=== PATIENT | male | born 1950 | race Caucasian/White ===

== ENCOUNTER → 2017-12-31 | Outpatient (CLI) | payer MEDICARE | END | disposition home or self-care (01) | LOC: CVU 10:14 | PROVIDERS: ATTEND Nurse Practitioner Family | DX: I70.203 Unspecified atherosclerosis of native arteries of extremities, bilateral legs (principal); I70.8 Atherosclerosis of other arteries; I65.23 Occlusion and stenosis of bilateral carotid arteries; I77.1 Stricture of artery; I10 Essential (primary) hypertension; Z87.891 Personal history of nicotine dependence | CPT/HCPCS: 93880; 93922; 93925; 93978 ==

== ENCOUNTER → 2018-02-11 | Outpatient (CLI) | payer MEDICARE ==
[~2018-02-11] MED LIST: REGADENOSON 0.4 MG/5 ML SYRINGE ONE
== END ==
LOC: CFH 07:17
PROVIDERS: ATTEND Internal Medicine Cardiovascular Disease
DX: I25.9 Chronic ischemic heart disease, unspecified (principal); I10 Essential (primary) hypertension
CPT/HCPCS: 78452; 93017; A9502; J2785

== ENCOUNTER 2018-03-03 10:52 | Inpatient (IN) | payer MEDICARE ==
[~2018-03-03] VITALS: Ht 177.8 cm; Wt 89.0 kg
[~2018-03-03 10:52] MED LIST changes: +ACET-1600 PO; +ALPR-475 PO; +AMIT75TA PO; +AMLO5TAB2 PO; +ASPI-496 PO; +ATOR20TA PO; +BUPIVACAINE/PF 0.5% ONE; +BUPR150T73 PO; +CALC625T23 PO; +CHOL200024 PO; +DIPH25CA61 PO; +FISH1CAP PO; +GLUC1CAP48 PO; +IRBE300T16 PO; +LANS30CA60 PO; +MULT-658 PO; +RANI150T23 PO; -REGADENOSON 0.4 MG/5 ML SYRINGE ONE; +SUCR1TAB33 PO; +TAMS-11 PO; +TRAM50TA2 PO
[2018-03-03] MEDS ORDERED: LACTATED RINGERS 1,000 ML IV SCH (11:02)
[2018-03-03] MEDS ORDERED: PERCOCET PO (11:24)
[2018-03-03] MEDS ORDERED: GABAPENTIN 300 MG CAPSULE PO ONE (11:30)
[2018-03-03] MEDS ORDERED: ACETAMINOPHEN 500 MG TABLET PO ONE (11:30)
[2018-03-03] MEDS ORDERED: MIDAZOLAM 1 MG/ML, 2ML ONE (11:57)
[2018-03-03] MEDS ORDERED: FENTANYL PF 250 MCG/5ML ONE (11:58)
[2018-03-03] MEDS ORDERED: PROPOFOL 10 MG/ML, 20ML ONE (11:58)
[2018-03-03] MEDS ORDERED: ROCURONIUM 10MG/ML,5ML ONE (11:59)
[2018-03-03] MEDS ORDERED: GLYCOPYRROLATE 0.4 MG/2 ML, 2ML ONE ×2 (12:00→15:04)
[2018-03-03] MEDS ORDERED: NEOSTIGMINE 1 MG/ML, 10ML ONE ×2 (12:00→15:04)
[2018-03-03] MEDS ORDERED: BUPIVACAINE/PF 0.5% ONE (13:29)
[2018-03-03] MEDS ORDERED: ROPIvacaine/PF 0.5%, 30 ML ONE ×2 (13:42)
[2018-03-03] MEDS ORDERED: PROMETHAZINE 25 MG SUPP PR PRN (14:00)
[2018-03-03] MEDS ORDERED: LABETALOL 5MG/ML, 20ML IV PRN (14:00)
[2018-03-03] MEDS ORDERED: hydrALAzine 20 MG/ML, 1ML IV PRN (14:00)
[2018-03-03] MEDS ORDERED: MORPHINE SULFATE 4 MG/ML, 1ML IVPush PRN (14:00)
[2018-03-03] MEDS ORDERED: OXYcodone 5 MG/5 ML ORAL.SOL UDC PO PRN (14:00)
[2018-03-03] MEDS ORDERED: PROMETHAZINE 25 MG/ML, 1ML IV PRN (14:00)
[2018-03-03] MEDS ORDERED: PROMETHAZINE 12.5 MG SUPP PR PRN (14:00)
[2018-03-03] MEDS ORDERED: ONDANSETRON ODT 8 MG PO PRN (14:00)
[2018-03-03] MEDS ORDERED: MEPERIDINE/PF 25MG/0.5ML IVPush PRN (14:00)
[2018-03-03] MEDS ORDERED: HYDROmorphone 1 MG/ML, 1ML ONE (15:34)
[2018-03-03] MEDS ORDERED: FENTANYL PF 100 MCG/2ML ONE (15:34)
[2018-03-03] MEDS ORDERED: OXYcodone 5 MG/5 ML ORAL.SOL UDC ONE (15:35)
[2018-03-03] MEDS: HYDROmorphone 1 MG/ML, 1ML IV PRN ×2 (15:37→15:51)
[2018-03-03] MEDS: FENTANYL PF 100 MCG/2ML IV PRN ×2 (15:44→15:58)
[2018-03-03] MEDS ORDERED: PROMETHAZINE 25 MG/ML, 1ML ONE (16:26)
[2018-03-03 17:30] VITALS: BP 146/70
[2018-03-03] MEDS ORDERED: LORazepam 1MG TABLET PO PRN (18:00)
[2018-03-03] MEDS ORDERED: CALCIUM CARBONATE 500 MG TAB.CHEW PO PRN (18:00)
[2018-03-03] MEDS ORDERED: DEXAMETHASONE 4 MG/ML, 1ML IVPush PRN (18:00)
[2018-03-03] MEDS ORDERED: SCOPOLAMINE PATCH, 1.5MG PATCH.TD72 TD PRN (18:00)
[2018-03-03] MEDS ORDERED: HALOPERIDOL 5 MG/ML IVPush PRN (18:00)
[2018-03-03] MEDS: D5%-0.45NACL+KCL 20MEQ 1,000 ML IV SCH (18:00)
[2018-03-03] MEDS ORDERED: LORazepam 2 MG/ML, 1ML IVPush PRN (18:00)
[2018-03-03] MEDS ORDERED: ONDANSETRON 2MG/ML, 2ML IV PRN (18:00)
[2018-03-03] MEDS ORDERED: ONDANSETRON ODT 4 MG ONE (18:13)
[2018-03-03] MEDS: ACETAMINOPHEN 500 MG TABLET PO SCH (18:16)
[2018-03-03] MEDS: ONDANSETRON ODT 4 MG PO PRN (18:16)
[2018-03-03] MEDS: OXYcodone IR 5MG TABLET PO PRN (20:19)
[2018-03-03] MEDS: AMITRIPTYLINE 25 MG TABLET PO SCH (20:20)
[2018-03-03] MEDS: ATORVASTATIN 20 MG TABLET PO SCH (20:20)
[2018-03-03] MEDS: IRBESARTAN 300 MG TABLET PO SCH (20:21)
[2018-03-03] MEDS: IBUPROFEN 800 MG TABLET PO SCH (21:00)
[2018-03-03 21:18] VITALS: BP 161/79
[2018-03-04 00:16] VITALS: BP 128/73
[2018-03-04] MEDS: OXYcodone IR 5MG TABLET PO PRN ×6 (00:21→22:05)
[2018-03-04] MEDS: ACETAMINOPHEN 500 MG TABLET PO SCH ×4 (00:21→17:33)
[2018-03-04 05:11] LABS: BASOPHILS # (AUTO) 0.03 x10^3/uL (0-0.1); BASOPHILS % (AUTO) 0 % (0-1); EOSINOPHILS # (AUTO) 0.06 x10^3/uL (0-0.4); EOSINOPHILS % (AUTO) 1 % (1-7); LYMPHOCYTES # (AUTO) 1.82 x10^3/uL (1-3.4); LYMPHOCYTES % (AUTO) 17 % (22-44); MD NO; MEAN CORPUSCULAR HEMOGLOBIN 31.4 pg (27.5-34.5); MEAN CORPUSCULAR HGB CONC 34.2 g/dL (33.2-36.2); MEAN CORPUSCULAR VOLUME 91.8 fL (81-97); MEAN PLATELET VOLUME 9.3 fL (7.4-10.4); MONOCYTES # (AUTO) 0.66 x10^3/uL (0.2-0.8); MONOCYTES % (AUTO) 6 % (2-9); NEUTROPHILS # (AUTO) 8.07 x10^3/uL (1.8-6.8); NEUTROPHILS % (AUTO) 76 % (42-75); PLATELET COUNT 210 x10^3/uL (130-400); RED BLOOD COUNT 4.26 x10^6/uL (4.38-5.82); RED CELL DISTRIBUTION WIDTH 12.3 % (9.4-14.8)
[2018-03-04 05:16] VITALS: BP 120/59
[2018-03-04 05:19] LABS: CHLORIDE 103 mmol/L (98-107)
[2018-03-04 05:23] LABS: ANION GAP 6 mmol/L (5-15); CALCIUM 8.2 mg/dL (8.5-10.1); CREATININE 1.07 mg/dL (0.7-1.3)
[2018-03-04 08:09] VITALS: BP 125/74
[2018-03-04] MEDS: FAMOTIDINE 20 MG TABLET PO SCH (08:49)
[2018-03-04] MEDS: DIPHENHYDRAMINE 25 MG CAPSULE PO SCH (08:50)
[2018-03-04] MEDS: PANTOPROZOLE 40MG TABLET PO SCH (08:50)
[2018-03-04] MEDS: TAMSULOSIN 0.4 MG CAP.ER.24H PO SCH (08:50)
[2018-03-04] MEDS: BUPROPION SR 150 MG TABLET PO SCH (08:50)
[2018-03-04] MEDS: IBUPROFEN 800 MG TABLET PO SCH ×3 (08:51→22:03)
[2018-03-04] MEDS: D5%-0.45NACL+KCL 20MEQ 1,000 ML IV SCH ×2 (08:56→20:40)
[2018-03-04] MEDS: HEPARIN 5,000 UNITS/ML, 1ML SQ SCH ×2 (08:56→17:03)
[2018-03-04] MEDS ORDERED: AMLODIPINE 5 MG TABLET PO SCH (09:00)
[2018-03-04 13:44] VITALS: BP 137/76
[2018-03-04 19:45] VITALS: BP 156/75
[2018-03-04] MEDS: IRBESARTAN 300 MG TABLET PO SCH (22:00)
[2018-03-04] MEDS: AMITRIPTYLINE 25 MG TABLET PO SCH (22:02)
[2018-03-04] MEDS: ATORVASTATIN 20 MG TABLET PO SCH (22:03)
[2018-03-04] MEDS: AMLODIPINE 5 MG TABLET PO SCH (22:04)
[2018-03-05] MEDS: HEPARIN 5,000 UNITS/ML, 1ML SQ SCH ×3 (00:10→16:55)
[2018-03-05 01:48] VITALS: BP 111/64
[2018-03-05] MEDS: OXYcodone IR 5MG TABLET PO PRN ×3 (02:21→21:27)
[2018-03-05] MEDS: ACETAMINOPHEN 500 MG TABLET PO SCH ×4 (02:21→21:24)
[2018-03-05 03:54] VITALS: BP 125/74
[2018-03-05 05:23] LABS: BASOPHILS # (AUTO) 0.04 x10^3/uL (0-0.1); BASOPHILS % (AUTO) 1 % (0-1); EOSINOPHILS # (AUTO) 0.25 x10^3/uL (0-0.4); EOSINOPHILS % (AUTO) 3 % (1-7); LYMPHOCYTES % (AUTO) 27 % (22-44); MD NO; MEAN CORPUSCULAR HEMOGLOBIN 31.4 pg (27.5-34.5); MEAN CORPUSCULAR HGB CONC 34.1 g/dL (33.2-36.2); MEAN PLATELET VOLUME 8.8 fL (7.4-10.4); MONOCYTES # (AUTO) 0.53 x10^3/uL (0.2-0.8); MONOCYTES % (AUTO) 6 % (2-9); NEUTROPHILS # (AUTO) 5.65 x10^3/uL (1.8-6.8); NEUTROPHILS % (AUTO) 64 % (42-75); PLATELET COUNT 192 x10^3/uL (130-400); RED BLOOD COUNT 4.28 x10^6/uL (4.38-5.82); RED CELL DISTRIBUTION WIDTH 12.8 % (9.4-14.8)
[2018-03-05 05:34] LABS: ANION GAP 5 mmol/L (5-15); CALCIUM 8.8 mg/dL (8.5-10.1); CHLORIDE 106 mmol/L (98-107)
[2018-03-05 05:35] LABS: CREATININE 0.97 mg/dL (0.7-1.3)
[2018-03-05] MEDS: PANTOPROZOLE 40MG TABLET PO SCH (07:31)
[2018-03-05 08:11] VITALS: BP 123/75
[2018-03-05] MEDS: D5%-0.45NACL+KCL 20MEQ 1,000 ML IV SCH ×2 (10:00→23:20)
[2018-03-05] MEDS: IBUPROFEN 800 MG TABLET PO SCH ×3 (10:37→21:00)
[2018-03-05] MEDS: DIPHENHYDRAMINE 25 MG CAPSULE PO SCH (10:37)
[2018-03-05] MEDS: TAMSULOSIN 0.4 MG CAP.ER.24H PO SCH (10:37)
[2018-03-05] MEDS: BUPROPION SR 150 MG TABLET PO SCH (10:37)
[2018-03-05] MEDS: FAMOTIDINE 20 MG TABLET PO SCH (10:37)
[2018-03-05 14:00] VITALS: BP 125/80
[2018-03-05 19:41] VITALS: BP 123/66
[2018-03-05] MEDS: AMITRIPTYLINE 25 MG TABLET PO SCH (21:25)
[2018-03-05] MEDS: ATORVASTATIN 20 MG TABLET PO SCH (21:26)
[2018-03-05] MEDS: AMLODIPINE 5 MG TABLET PO SCH (21:26)
[2018-03-05] MEDS: IRBESARTAN 300 MG TABLET PO SCH (21:31)
[2018-03-06 01:59] VITALS: BP 118/69
[2018-03-06] MEDS: HEPARIN 5,000 UNITS/ML, 1ML SQ SCH ×3 (02:10→17:16)
[2018-03-06] MEDS: ACETAMINOPHEN 500 MG TABLET PO SCH ×4 (02:10→20:00)
[2018-03-06 06:08] LABS: BASOPHILS # (AUTO) 0.03 x10^3/uL (0-0.1); BASOPHILS % (AUTO) 0 % (0-1); EOSINOPHILS # (AUTO) 0.16 x10^3/uL (0-0.4); EOSINOPHILS % (AUTO) 2 % (1-7); LYMPHOCYTES # (AUTO) 1.16 x10^3/uL (1-3.4); LYMPHOCYTES % (AUTO) 11 % (22-44); MD NO; MEAN CORPUSCULAR HEMOGLOBIN 31.8 pg (27.5-34.5); MEAN CORPUSCULAR HGB CONC 34.4 g/dL (33.2-36.2); MEAN CORPUSCULAR VOLUME 92.5 fL (81-97); MEAN PLATELET VOLUME 10.4 fL (7.4-10.4); MONOCYTES # (AUTO) 0.48 x10^3/uL (0.2-0.8); MONOCYTES % (AUTO) 5 % (2-9); NEUTROPHILS # (AUTO) 8.75 x10^3/uL (1.8-6.8); NEUTROPHILS % (AUTO) 83 % (42-75); PLATELET COUNT 185 x10^3/uL (130-400); RED BLOOD COUNT 4.05 x10^6/uL (4.38-5.82); RED CELL DISTRIBUTION WIDTH 12.5 % (9.4-14.8)
[2018-03-06] MEDS: ONDANSETRON ODT 4 MG PO PRN ×3 (06:12→20:14)
[2018-03-06 06:13] LABS: ANION GAP 8 mmol/L (5-15); CALCIUM 9.1 mg/dL (8.5-10.1); CHLORIDE 102 mmol/L (98-107); CREATININE 1.01 mg/dL (0.7-1.3)
[2018-03-06] MEDS: PANTOPROZOLE 40MG TABLET PO SCH (08:17)
[2018-03-06] MEDS: TAMSULOSIN 0.4 MG CAP.ER.24H PO SCH (08:17)
[2018-03-06] MEDS: DIPHENHYDRAMINE 25 MG CAPSULE PO SCH (08:17)
[2018-03-06] MEDS: IBUPROFEN 800 MG TABLET PO SCH ×3 (08:17→21:00)
[2018-03-06] MEDS: BUPROPION SR 150 MG TABLET PO SCH (08:17)
[2018-03-06] MEDS: FAMOTIDINE 20 MG TABLET PO SCH (08:17)
[2018-03-06 09:07] VITALS: BP 99/63
[2018-03-06] MEDS: D5%-0.45NACL+KCL 20MEQ 1,000 ML IV SCH (09:55)
[2018-03-06 14:31] VITALS: BP 117/74
[2018-03-06] MEDS: DIPHENHYDRAMINE 50 MG/ML, 1ML IVPush PRN ×2 (14:51→20:14)
[2018-03-06] MEDS: HYDROmorphone 1 MG/ML, 1ML IVPush PRN (16:19)
[2018-03-06 20:38] VITALS: BP 143/84
[2018-03-06] MEDS: ATORVASTATIN 20 MG TABLET PO SCH (21:00)
[2018-03-06] MEDS: AMITRIPTYLINE 25 MG TABLET PO SCH (21:00)
[2018-03-06] MEDS: IRBESARTAN 300 MG TABLET PO SCH (21:00)
[2018-03-06] MEDS: AMLODIPINE 5 MG TABLET PO SCH (21:00)
[2018-03-07 01:41] VITALS: BP 136/80
[2018-03-07] MEDS: ONDANSETRON ODT 4 MG PO PRN ×4 (01:46→21:26)
[2018-03-07] MEDS: HEPARIN 5,000 UNITS/ML, 1ML SQ SCH ×4 (01:46→21:26)
[2018-03-07] MEDS: ACETAMINOPHEN 500 MG TABLET PO SCH ×4 (01:47→19:30)
[2018-03-07] MEDS: HYDROmorphone 1 MG/ML, 1ML IVPush PRN (01:47)
[2018-03-07] MEDS: D5%-0.45NACL+KCL 20MEQ 1,000 ML IV SCH ×3 (01:52→19:18)
[2018-03-07 06:49] VITALS: BP 110/73
[2018-03-07] MEDS: PANTOPROZOLE 40MG TABLET PO SCH (07:39)
[2018-03-07] MEDS: BUPROPION SR 150 MG TABLET PO SCH (09:38)
[2018-03-07] MEDS: IBUPROFEN 800 MG TABLET PO SCH ×3 (09:38→19:30)
[2018-03-07] MEDS: DIPHENHYDRAMINE 25 MG CAPSULE PO SCH (09:38)
[2018-03-07] MEDS: TAMSULOSIN 0.4 MG CAP.ER.24H PO SCH (09:39)
[2018-03-07] MEDS: FAMOTIDINE 20 MG TABLET PO SCH (09:39)
[2018-03-07 13:04] VITALS: BP 108/64
[2018-03-07 19:38] VITALS: BP 121/61
[2018-03-07] MEDS: ATORVASTATIN 20 MG TABLET PO SCH (21:25)
[2018-03-07] MEDS: AMLODIPINE 5 MG TABLET PO SCH (21:26)
[2018-03-07] MEDS: AMITRIPTYLINE 25 MG TABLET PO SCH (21:27)
[2018-03-07] MEDS: IRBESARTAN 300 MG TABLET PO SCH (21:27)
[2018-03-08 04:00] VITALS: BP 121/69
[2018-03-08] MEDS: ACETAMINOPHEN 500 MG TABLET PO SCH (05:05)
[2018-03-08] MEDS: HEPARIN 5,000 UNITS/ML, 1ML SQ SCH (05:06)
[2018-03-08 07:37] VITALS: BP 108/68
[2018-03-08] MEDS: TAMSULOSIN 0.4 MG CAP.ER.24H PO SCH (08:33)
[2018-03-08] MEDS: IBUPROFEN 800 MG TABLET PO SCH (08:33)
[2018-03-08] MEDS: PANTOPROZOLE 40MG TABLET PO SCH (08:33)
[2018-03-08] MEDS: ONDANSETRON ODT 4 MG PO PRN (08:33)
[2018-03-08] MEDS: FAMOTIDINE 20 MG TABLET PO SCH (08:33)
[2018-03-08] MEDS: BUPROPION SR 150 MG TABLET PO SCH (08:33)
[2018-03-08] MEDS: DIPHENHYDRAMINE 25 MG CAPSULE PO SCH (08:33)
[2018-03-08] MEDS ORDERED: OXYC-302 PO (09:54)
== END 2018-03-08 10:40 | disposition home or self-care (01) | DRG 330 ==
LOC: ORIP 10:52 → 4NOR 17:09
PROVIDERS: ADMIT Surgery; ATTEND Surgery
PROC: 0DTF4ZZ Resection of Right Large Intestine, Percutaneous Endoscopic Approach (ICD-10-PCS; principal; 2018-03-03 13:30)
DX: C18.0 Malignant neoplasm of cecum (principal); K56.7 Ileus, unspecified; K21.9 Gastro-esophageal reflux disease without esophagitis; I10 Essential (primary) hypertension; I73.9 Peripheral vascular disease, unspecified; G47.33 Obstructive sleep apnea (adult) (pediatric); N40.0 Benign prostatic hyperplasia without lower urinary tract symptoms
CPT/HCPCS: 36415; 80048; 85025; 86850; 86900; 88307; J1100; J1170; J1644; J2250; J2550; J2704; J2710; J2795; J3010; J3490; Q0162; J1200; J2060; J3480; J7120; Q0163

== ENCOUNTER 2018-03-09 12:47 | Emergency (ER) | payer MEDICARE ==
[~2018-03-09] VITALS: Ht 177.8 cm; Wt 87.0 kg
[~2018-03-09 12:47] MED LIST changes: -BUPIVACAINE/PF 0.5% ONE; +OXYC-302 PO; +PERCOCET PO
[2018-03-09] MEDS ORDERED: SODIUM CHLORIDE FLUSH 10ML SYR IVF ONE (13:30)
[2018-03-09 13:45] LABS: BASOPHILS # (AUTO) 0.01 x10^3/uL (0-0.1); BASOPHILS % (AUTO) 0 % (0-1); EOSINOPHILS # (AUTO) 0.02 x10^3/uL (0-0.4); EOSINOPHILS % (AUTO) 0 % (1-7); LYMPHOCYTES # (AUTO) 0.62 x10^3/uL (1-3.4); LYMPHOCYTES % (AUTO) 10 % (22-44); MD NO; MEAN CORPUSCULAR HEMOGLOBIN 31.6 pg (27.5-34.5); MEAN CORPUSCULAR HGB CONC 34.3 g/dL (33.2-36.2); MEAN CORPUSCULAR VOLUME 92.2 fL (81-97); MEAN PLATELET VOLUME 9.4 fL (7.4-10.4); MONOCYTES % (AUTO) 10 % (2-9); NEUTROPHILS # (AUTO) 4.99 x10^3/uL (1.8-6.8); NEUTROPHILS % (AUTO) 80 % (42-75); PLATELET COUNT 274 x10^3/uL (130-400); RED BLOOD COUNT 4.06 x10^6/uL (4.38-5.82); RED CELL DISTRIBUTION WIDTH 12.8 % (9.4-14.8)
[2018-03-09 13:52] LABS: ALBUMIN 3.5 g/dL (3.4-5.0); ANION GAP 12 mmol/L (5-15); CALCIUM 8.4 mg/dL (8.5-10.1); CHLORIDE 100 mmol/L (98-107)
[2018-03-09 13:56] LABS: ALANINE AMINOTRANSFERASE 83 U/L (12-78); ALKALINE PHOSPHATASE 80 U/L (45-117); BILIRUBIN,TOTAL 0.7 mg/dL (0.2-1.0); CREATININE 1.22 mg/dL (0.7-1.3); TOTAL PROTEIN 7.2 g/dL (6.4-8.2)
[2018-03-09] MEDS ORDERED: SODIUM CHLORIDE 0.9% 1,000ML IVBOLUS ONE (16:00)
[2018-03-09] MEDS ORDERED: OMNIPAQUE 350 MG/ML, 100ML BOTTLE ONE (16:03)
[2018-03-09 16:49] LABS: MICROSCOPIC INDICATED
[2018-03-09 17:17] LABS: CULTURE INDICATED? NO
[2018-03-09 17:47] VITALS: BP 133/66
== END 2018-03-09 17:54 | disposition home or self-care (01) ==
LOC: ED 17:45
DX: F41.1 Generalized anxiety disorder (principal); E86.0 Dehydration; K56.0 Paralytic ileus; I10 Essential (primary) hypertension; Z87.891 Personal history of nicotine dependence; Z90.49 Acquired absence of other specified parts of digestive tract
CPT/HCPCS: 36415; 74177; 80053; 81001; 85025; 93005; 96360; 99285; J7030; Q9967

== ENCOUNTER 2018-03-14 09:45 | Inpatient (IN) | payer MEDICARE ==
[~2018-03-14] VITALS: Ht 177.8 cm; Wt 83.5 kg
[2018-03-14] MEDS ORDERED: SODIUM CHLORIDE FLUSH 10ML SYR IVF ONE (10:30)
[2018-03-14] MEDS ORDERED: ONDANSETRON ODT 4 MG PO ONE (10:30)
[2018-03-14] MEDS ORDERED: MORPHINE SULFATE 4 MG/ML, 1ML IVPush PRN ×2 (10:30→14:30)
[2018-03-14 10:39] LABS: BASOPHILS # (AUTO) 0.03 x10^3/uL (0-0.1); BASOPHILS % (AUTO) 0 % (0-1); EOSINOPHILS # (AUTO) 0.03 x10^3/uL (0-0.4); EOSINOPHILS % (AUTO) 0 % (1-7); LYMPHOCYTES # (AUTO) 1.17 x10^3/uL (1-3.4); LYMPHOCYTES % (AUTO) 13 % (22-44); MD NO; MEAN CORPUSCULAR HEMOGLOBIN 31.8 pg (27.5-34.5); MEAN CORPUSCULAR HGB CONC 34.8 g/dL (33.2-36.2); MEAN CORPUSCULAR VOLUME 91.6 fL (81-97); MEAN PLATELET VOLUME 8.8 fL (7.4-10.4); MONOCYTES # (AUTO) 0.86 x10^3/uL (0.2-0.8); MONOCYTES % (AUTO) 10 % (2-9); NEUTROPHILS # (AUTO) 6.84 x10^3/uL (1.8-6.8); NEUTROPHILS % (AUTO) 77 % (42-75); PLATELET COUNT 309 x10^3/uL (130-400); RED BLOOD COUNT 3.91 x10^6/uL (4.38-5.82)
[2018-03-14 10:41] LABS: ALANINE AMINOTRANSFERASE 58 U/L (12-78); ALBUMIN 3.4 g/dL (3.4-5.0); ANION GAP 9 mmol/L (5-15); CALCIUM 8.8 mg/dL (8.5-10.1); CHLORIDE 104 mmol/L (98-107); CREATININE 0.75 mg/dL (0.7-1.3)
[2018-03-14 10:43] LABS: ALKALINE PHOSPHATASE 80 U/L (45-117); BILIRUBIN,TOTAL 0.4 mg/dL (0.2-1.0); TOTAL PROTEIN 7.2 g/dL (6.4-8.2)
[2018-03-14] MEDS ORDERED: BENZOCAINE 20% SPRAY 0.5ML ONE ×2 (11:33→11:40)
[2018-03-14] MEDS ORDERED: SODIUM CHLORIDE 0.9% 1,000 ML IV ONE (11:44)
[2018-03-14] MEDS ORDERED: SODIUM CHLORIDE FLUSH 10ML SYR IVF PRN (12:00)
[2018-03-14] MEDS ORDERED: SODIUM CHLORIDE 0.9% 1,000 ML IV SCH (12:11)
[2018-03-14] MEDS ORDERED: MORPHINE SULFATE 4 MG/ML, 1ML ONE (12:18)
[2018-03-14] MEDS: MORPHINE SULFATE 4 MG/ML, 1ML IVPush PRN ×2 (12:20→21:11)
[2018-03-14] MEDS ORDERED: PROMETHAZINE 25 MG/ML, 1ML IM PRN (12:30)
[2018-03-14] MEDS ORDERED: ONDANSETRON 2MG/ML, 2ML IVPush PRN (12:30)
[2018-03-14] MEDS ORDERED: POTASSIUM CHLORIDE 40 MEQ in SODIUM CHLORIDE 0.9% 1,000 ML IV SCH (13:00)
[2018-03-14 13:40] VITALS: BP 135/72
[2018-03-14] MEDS ORDERED: KETOROLAC 30 MG/1 ML IV PRN (14:30)
[2018-03-14] MEDS: LORazepam 2 MG/ML, 1ML IVPush PRN ×2 (14:36→21:11)
[2018-03-14] MEDS: POTASSIUM CHLORIDE 40 MEQ in SODIUM CHLORIDE 0.9% 1,000 ML IV SCH (15:35)
[2018-03-14] MEDS: KETOROLAC 30 MG/1 ML IV PRN (15:50)
[2018-03-14] MEDS: BENZOCAINE 20% SPRAY 0.5ML TP PRN (19:16)
[2018-03-14 20:10] VITALS: BP 130/84
[2018-03-15 02:21] VITALS: BP 140/83
[2018-03-15] MEDS: POTASSIUM CHLORIDE 40 MEQ in SODIUM CHLORIDE 0.9% 1,000 ML IV SCH ×2 (03:32→16:30)
[2018-03-15] MEDS: KETOROLAC 30 MG/1 ML IV PRN (03:39)
[2018-03-15 05:24] LABS: BASOPHILS # (AUTO) 0.02 x10^3/uL (0-0.1); BASOPHILS % (AUTO) 0 % (0-1); EOSINOPHILS # (AUTO) 0.04 x10^3/uL (0-0.4); EOSINOPHILS % (AUTO) 1 % (1-7); LYMPHOCYTES # (AUTO) 1.42 x10^3/uL (1-3.4); LYMPHOCYTES % (AUTO) 15 % (22-44); MD NO; MEAN CORPUSCULAR HEMOGLOBIN 31.4 pg (27.5-34.5); MEAN CORPUSCULAR HGB CONC 33.7 g/dL (33.2-36.2); MEAN CORPUSCULAR VOLUME 93.2 fL (81-97); MEAN PLATELET VOLUME 9.1 fL (7.4-10.4); MONOCYTES # (AUTO) 0.84 x10^3/uL (0.2-0.8); MONOCYTES % (AUTO) 9 % (2-9); NEUTROPHILS # (AUTO) 6.97 x10^3/uL (1.8-6.8); NEUTROPHILS % (AUTO) 75 % (42-75); PLATELET COUNT 262 x10^3/uL (130-400); RED CELL DISTRIBUTION WIDTH 12.9 % (9.4-14.8)
[2018-03-15 05:25] LABS: ALBUMIN 2.9 g/dL (3.4-5.0); ANION GAP 10 mmol/L (5-15); CHLORIDE 106 mmol/L (98-107)
[2018-03-15 05:30] LABS: ALANINE AMINOTRANSFERASE 48 U/L (12-78); ALKALINE PHOSPHATASE 69 U/L (45-117); BILIRUBIN,TOTAL 0.5 mg/dL (0.2-1.0); CREATININE 0.65 mg/dL (0.7-1.3); TOTAL PROTEIN 6.2 g/dL (6.4-8.2)
[2018-03-15 06:58] VITALS: BP 145/80
[2018-03-15 12:18] VITALS: BP 127/78
[2018-03-15] MEDS: BENZOCAINE 20% SPRAY 0.5ML TP PRN (18:17)
[2018-03-15 18:53] VITALS: BP 130/87
[2018-03-15] MEDS: LORazepam 2 MG/ML, 1ML IVPush PRN (20:54)
[2018-03-16 03:27] VITALS: BP 151/74
[2018-03-16] MEDS: POTASSIUM CHLORIDE 40 MEQ in SODIUM CHLORIDE 0.9% 1,000 ML IV SCH (06:40)
[2018-03-16 09:01] LABS: BASOPHILS # (AUTO) 0.02 x10^3/uL (0-0.1); BASOPHILS % (AUTO) 0 % (0-1); EOSINOPHILS # (AUTO) 0.08 x10^3/uL (0-0.4); EOSINOPHILS % (AUTO) 1 % (1-7); LYMPHOCYTES # (AUTO) 1.54 x10^3/uL (1-3.4); LYMPHOCYTES % (AUTO) 16 % (22-44); MD NO; MEAN CORPUSCULAR HEMOGLOBIN 31.7 pg (27.5-34.5); MEAN CORPUSCULAR HGB CONC 34.6 g/dL (33.2-36.2); MEAN CORPUSCULAR VOLUME 91.7 fL (81-97); MEAN PLATELET VOLUME 8.3 fL (7.4-10.4); MONOCYTES # (AUTO) 0.69 x10^3/uL (0.2-0.8); MONOCYTES % (AUTO) 7 % (2-9); NEUTROPHILS # (AUTO) 7.08 x10^3/uL (1.8-6.8); NEUTROPHILS % (AUTO) 75 % (42-75); PLATELET COUNT 310 x10^3/uL (130-400); RED BLOOD COUNT 3.67 x10^6/uL (4.38-5.82); RED CELL DISTRIBUTION WIDTH 13.5 % (9.4-14.8)
[2018-03-16 09:13] LABS: ALANINE AMINOTRANSFERASE 46 U/L (12-78); ALBUMIN 3.2 g/dL (3.4-5.0); ANION GAP 16 mmol/L (5-15); CALCIUM 8.7 mg/dL (8.5-10.1); CHLORIDE 109 mmol/L (98-107); CREATININE 0.68 mg/dL (0.7-1.3)
[2018-03-16 09:14] VITALS: BP 131/76
[2018-03-16 09:15] LABS: ALKALINE PHOSPHATASE 74 U/L (45-117); BILIRUBIN,TOTAL 0.4 mg/dL (0.2-1.0); TOTAL PROTEIN 6.8 g/dL (6.4-8.2)
[2018-03-16] MEDS ORDERED: [UNRECOGNIZED DRUG - REMARK] MC SCH (09:30)
[2018-03-16] MEDS ORDERED: MAGNESIUM SULFATE PMX 2GM/50ML 50 ML IV ONE (12:30)
[2018-03-16 13:54] VITALS: BP 155/87
[2018-03-16] MEDS ORDERED: OMNIPAQUE 350 MG/ML, 150 ML BOTTLE ONE (18:22)
[2018-03-16 19:05] VITALS: BP 150/81
[2018-03-16] MEDS: LORazepam 2 MG/ML, 1ML IVPush PRN (21:23)
[2018-03-16] MEDS: MORPHINE SULFATE 4 MG/ML, 1ML IVPush PRN (21:23)
[2018-03-17 03:02] VITALS: BP 146/78
[2018-03-17 07:57] VITALS: BP 145/71
[2018-03-17 09:28] LABS: BASOPHILS # (AUTO) 0.03 x10^3/uL (0-0.1); BASOPHILS % (AUTO) 0 % (0-1); EOSINOPHILS # (AUTO) 0.16 x10^3/uL (0-0.4); EOSINOPHILS % (AUTO) 2 % (1-7); LYMPHOCYTES # (AUTO) 1.62 x10^3/uL (1-3.4); LYMPHOCYTES % (AUTO) 18 % (22-44); MD NO; MEAN CORPUSCULAR HEMOGLOBIN 30.8 pg (27.5-34.5); MEAN CORPUSCULAR HGB CONC 33.3 g/dL (33.2-36.2); MEAN CORPUSCULAR VOLUME 92.5 fL (81-97); MEAN PLATELET VOLUME 8.3 fL (7.4-10.4); MONOCYTES % (AUTO) 7 % (2-9); NEUTROPHILS % (AUTO) 74 % (42-75); PLATELET COUNT 330 x10^3/uL (130-400); RED BLOOD COUNT 3.67 x10^6/uL (4.38-5.82); RED CELL DISTRIBUTION WIDTH 13.5 % (9.4-14.8)
[2018-03-17 09:38] LABS: ALBUMIN 3.2 g/dL (3.4-5.0); ANION GAP 13 mmol/L (5-15); CALCIUM 8.3 mg/dL (8.5-10.1); CHLORIDE 113 mmol/L (98-107)
[2018-03-17 09:42] LABS: ALANINE AMINOTRANSFERASE 40 U/L (12-78); ALKALINE PHOSPHATASE 76 U/L (45-117); BILIRUBIN,TOTAL 0.5 mg/dL (0.2-1.0); CREATININE 0.75 mg/dL (0.7-1.3); TOTAL PROTEIN 6.8 g/dL (6.4-8.2)
[2018-03-17] MEDS: POTASSIUM CHLORIDE 40 MEQ in SODIUM CHLORIDE 0.9% 1,000 ML IV SCH ×3 (12:18→21:19)
[2018-03-17 12:48] VITALS: BP 128/90
[2018-03-17 19:38] VITALS: BP_SYST 162; BP_SYST 166; BP_DIAS 75; BP_DIAS 77
[2018-03-17] MEDS: KETOROLAC 30 MG/1 ML IV PRN (22:37)
[2018-03-17] MEDS: LORazepam 2 MG/ML, 1ML IVPush PRN (22:37)
[2018-03-18 02:59] VITALS: BP 134/67
[2018-03-18 06:59] VITALS: BP 159/88
[2018-03-18 09:59] LABS: ALANINE AMINOTRANSFERASE 38 U/L (12-78); ALBUMIN 3.2 g/dL (3.4-5.0); ANION GAP 10 mmol/L (5-15); BASOPHILS # (AUTO) 0.03 x10^3/uL (0-0.1); BASOPHILS % (AUTO) 0 % (0-1); CALCIUM 8.8 mg/dL (8.5-10.1); CHLORIDE 107 mmol/L (98-107); EOSINOPHILS # (AUTO) 0.22 x10^3/uL (0-0.4); EOSINOPHILS % (AUTO) 2 % (1-7); LYMPHOCYTES # (AUTO) 1.35 x10^3/uL (1-3.4); LYMPHOCYTES % (AUTO) 15 % (22-44); MD NO; MEAN CORPUSCULAR HEMOGLOBIN 31.6 pg (27.5-34.5); MEAN PLATELET VOLUME 8.1 fL (7.4-10.4); MONOCYTES # (AUTO) 0.43 x10^3/uL (0.2-0.8); MONOCYTES % (AUTO) 5 % (2-9); NEUTROPHILS # (AUTO) 6.95 x10^3/uL (1.8-6.8); NEUTROPHILS % (AUTO) 77 % (42-75); PLATELET COUNT 355 x10^3/uL (130-400); RED BLOOD COUNT 3.85 x10^6/uL (4.38-5.82); RED CELL DISTRIBUTION WIDTH 13.3 % (9.4-14.8)
[2018-03-18 10:01] LABS: ALKALINE PHOSPHATASE 78 U/L (45-117); BILIRUBIN,TOTAL 0.5 mg/dL (0.2-1.0)
[2018-03-18 12:53] VITALS: BP 138/83
== END 2018-03-18 14:29 | disposition home or self-care (01) | DRG 389 ==
LOC: ED 10:50 → EDIP 11:44 → 4NOR 12:49 → DCLOUNGE 03-18 14:18
PROVIDERS: ADMIT Hospitalist; ATTEND Hospitalist
DX: K56.609 Unspecified intestinal obstruction, unspecified as to partial versus complete obstruction (principal); E87.1 Hypo-osmolality and hyponatremia; D64.9 Anemia, unspecified; E78.5 Hyperlipidemia, unspecified; E87.6 Hypokalemia; F41.9 Anxiety disorder, unspecified; G47.33 Obstructive sleep apnea (adult) (pediatric); G89.18 Other acute postprocedural pain; I10 Essential (primary) hypertension; I73.9 Peripheral vascular disease, unspecified; K21.9 Gastro-esophageal reflux disease without esophagitis; N40.0 Benign prostatic hyperplasia without lower urinary tract symptoms; Z82.3 Family history of stroke; Z87.891 Personal history of nicotine dependence; Z90.49 Acquired absence of other specified parts of digestive tract; Z99.81 Dependence on supplemental oxygen
CPT/HCPCS: 36415; 74018; 74022; 74250; 80053; 83605; 83735; 84100; 85025; 99285; J1885; J3480; Q9967; J2060; J3475; J7030

== ENCOUNTER → 2019-01-25 | Outpatient (CLI) | payer MEDICARE ==
[~2019-01-25] MED LIST changes: +AMLO-150 PO; -AMLO5TAB2 PO
== END | disposition home or self-care (01) ==
LOC: CVU 12:14
PROVIDERS: ATTEND Internal Medicine Cardiovascular Disease
DX: I74.5 Embolism and thrombosis of iliac artery (principal); I74.3 Embolism and thrombosis of arteries of the lower extremities; I70.292 Other atherosclerosis of native arteries of extremities, left leg; I77.1 Stricture of artery; I10 Essential (primary) hypertension; E78.5 Hyperlipidemia, unspecified; F17.200 Nicotine dependence, unspecified, uncomplicated; Z86.718 Personal history of other venous thrombosis and embolism
CPT/HCPCS: 93922; 93925; 93978

== ENCOUNTER → 2019-04-04 | Outpatient (CLI) | payer MEDICARE ==
[~2019-04-04] MED LIST changes: +REGADENOSON 0.4 MG/5 ML SYRINGE ONE
== END | disposition home or self-care (01) ==
LOC: CFH 07:58
PROVIDERS: ATTEND Internal Medicine Cardiovascular Disease
DX: I21.19 ST elevation (STEMI) myocardial infarction involving other coronary artery of inferior wall (principal); I10 Essential (primary) hypertension; I70.202 Unspecified atherosclerosis of native arteries of extremities, left leg
CPT/HCPCS: 78452; 93017; A9502; J2785

== ENCOUNTER 2019-08-29 10:42 | Outpatient (CLI) | payer MEDICARE ==
[~2019-08-29 10:42] MED LIST changes: -ALPR-475 PO; +ALPR0.5T7 PO; +RANI-467 PO; -RANI150T23 PO; -REGADENOSON 0.4 MG/5 ML SYRINGE ONE
== END 2019-08-29 23:59 | disposition home or self-care (01) ==
LOC: RAD 10:42
PROVIDERS: ATTEND Nurse Practitioner
DX: I65.23 Occlusion and stenosis of bilateral carotid arteries (principal); Z87.891 Personal history of nicotine dependence
CPT/HCPCS: 93880

== ENCOUNTER 2019-10-31 09:00 | Outpatient (CLI) | payer MEDICARE ==
[~2019-10-31 09:00] MED LIST changes: -IRBE300T16 PO; +IRBE300T8 PO
== END 2019-10-31 23:59 | disposition home or self-care (01) ==
LOC: CVU 09:00
PROVIDERS: ATTEND Nurse Practitioner
DX: I70.8 Atherosclerosis of other arteries (principal)
CPT/HCPCS: 93931

== ENCOUNTER 2019-12-20 12:14 | Outpatient (CLI) | payer MEDICARE | END 2019-12-20 23:59 | disposition home or self-care (01) | LOC: CVU 12:14 | PROVIDERS: ATTEND Internal Medicine Cardiovascular Disease | DX: I08.0 Rheumatic disorders of both mitral and aortic valves (principal); I70.201 Unspecified atherosclerosis of native arteries of extremities, right leg; Z87.891 Personal history of nicotine dependence | CPT/HCPCS: 93306; 93356; 93922; 93925 ==

== ENCOUNTER → 2020-04-23 | Outpatient (CLI) | payer MEDICARE ==
[~2020-04-23] MED LIST changes: +REGADENOSON 0.4 MG/5 ML SYRINGE ONE
== END | disposition home or self-care (01) ==
LOC: CFH 08:24
PROVIDERS: ATTEND Internal Medicine Cardiovascular Disease
DX: I10 Essential (primary) hypertension (principal)
CPT/HCPCS: 78452; 93017; A9502; J2785

== ENCOUNTER → 2020-05-17 | Outpatient (CLI) | payer MEDICARE ==
[~2020-05-17] MED LIST changes: -REGADENOSON 0.4 MG/5 ML SYRINGE ONE
== END | disposition home or self-care (01) ==
LOC: CFH 09:41
PROVIDERS: ATTEND Nurse Practitioner
DX: R22.0 Localized swelling, mass and lump, head (principal); D49.89 Neoplasm of unspecified behavior of other specified sites
CPT/HCPCS: 70450

== ENCOUNTER 2020-07-27 07:41 | Day surgery (SDC) | payer MEDICARE ==
[~2020-07-27 07:41] MED LIST changes: +FERR325T18 PO; +POLY17PO5 PO; +SENN-220 PO
[2020-07-27 08:49] VITALS: BP 123/75
[2020-07-27] MEDS ORDERED: FENTANYL PF 100 MCG/2ML ONE (11:06)
[2020-07-27] MEDS ORDERED: NALOXONE 1 MG/ML, 2ML ONE (11:06)
[2020-07-27] MEDS ORDERED: MIDAZOLAM 1 MG/ML, 5ML ONE ×2 (11:06)
[2020-07-27] MEDS ORDERED: FLUMAZENIL 0.1 MG/1 ML, 5ML ONE (11:06)
== END 2020-07-27 12:45 | disposition home or self-care (01) ==
LOC: OUT 07:41
PROVIDERS: ATTEND Internal Medicine Hematology & Oncology
DX: R22.2 Localized swelling, mass and lump, trunk (principal); C45.0 Mesothelioma of pleura; J43.9 Emphysema, unspecified; I10 Essential (primary) hypertension; G47.30 Sleep apnea, unspecified; K21.9 Gastro-esophageal reflux disease without esophagitis; Z79.891 Long term (current) use of opiate analgesic; Z79.899 Other long term (current) drug therapy; Z87.891 Personal history of nicotine dependence; Z99.81 Dependence on supplemental oxygen
CPT/HCPCS: 20206; 77012; 88305; 88341; 88342; 99156; 99157; J2250; J3010; J2310

== ENCOUNTER → 2020-08-01 | Outpatient (CLI) | payer MEDICARE | END | disposition home or self-care (01) | LOC: ROC 08:00 | PROVIDERS: ATTEND Radiology Radiation Oncology | DX: C45.7 Mesothelioma of other sites (principal); K21.9 Gastro-esophageal reflux disease without esophagitis; J43.9 Emphysema, unspecified; I10 Essential (primary) hypertension; E78.5 Hyperlipidemia, unspecified; F32.9 Major depressive disorder, single episode, unspecified; G89.29 Other chronic pain; Z90.49 Acquired absence of other specified parts of digestive tract; Z79.891 Long term (current) use of opiate analgesic; Z79.01 Long term (current) use of anticoagulants; Z79.82 Long term (current) use of aspirin; Z79.899 Other long term (current) drug therapy; Z87.891 Personal history of nicotine dependence; Z99.81 Dependence on supplemental oxygen | CPT/HCPCS: 99214; G0463 ==

== ENCOUNTER 2020-08-10 07:01 | Day surgery (SDC) | payer MEDICARE ==
[~2020-08-10] VITALS: Ht 177.8 cm; Wt 82.0 kg
[2020-08-10] MEDS ORDERED: CEFAZOLIN PMX 1GM/50ML 50 ML IV STA (07:37)
[2020-08-10] MEDS ORDERED: SODIUM CHLORIDE 0.9% 1,000 ML IV SCH (08:00)
[2020-08-10] MEDS ORDERED: FLUMAZENIL 0.1 MG/1 ML, 5ML ONE (08:43)
[2020-08-10] MEDS ORDERED: FENTANYL PF 100 MCG/2ML ONE (08:43)
[2020-08-10] MEDS ORDERED: MIDAZOLAM 1 MG/ML, 5ML ONE (08:43)
[2020-08-10] MEDS ORDERED: NALOXONE 1 MG/ML, 2ML ONE (08:43)
[2020-08-10 08:47] VITALS: BP 160/86
[2020-08-10] MEDS ORDERED: LIDOCAINE 1%, 20ML ONE (09:30)
[2020-08-10] MEDS ORDERED: LIDOCAINE 1%, 10ML ONE (09:36)
== END 2020-08-10 11:15 | disposition home or self-care (01) ==
LOC: OUT 07:01
PROVIDERS: ATTEND Internal Medicine Hematology & Oncology
DX: C45.9 Mesothelioma, unspecified (principal); I10 Essential (primary) hypertension; K21.9 Gastro-esophageal reflux disease without esophagitis; G47.30 Sleep apnea, unspecified; I73.9 Peripheral vascular disease, unspecified; Z79.891 Long term (current) use of opiate analgesic; Z79.899 Other long term (current) drug therapy; Z87.891 Personal history of nicotine dependence
CPT/HCPCS: 36561; 76937; 77001; 99156; 99157; C1788; J0690; J1642; J2250; J3010; J7030; J2310

== ENCOUNTER → 2020-08-29 | Outpatient (CLI) | payer MEDICARE | END | disposition home or self-care (01) | LOC: ROC 08:24 | PROVIDERS: ATTEND Radiology Radiation Oncology | DX: C45.7 Mesothelioma of other sites (principal); I10 Essential (primary) hypertension; K21.9 Gastro-esophageal reflux disease without esophagitis; J43.9 Emphysema, unspecified; E78.5 Hyperlipidemia, unspecified; F32.9 Major depressive disorder, single episode, unspecified; G89.29 Other chronic pain; Z79.899 Other long term (current) drug therapy; Z87.891 Personal history of nicotine dependence; Z90.49 Acquired absence of other specified parts of digestive tract; Z79.891 Long term (current) use of opiate analgesic; Z99.81 Dependence on supplemental oxygen; Z79.82 Long term (current) use of aspirin | CPT/HCPCS: 99212; G0463 ==

== ENCOUNTER → 2020-11-13 | Outpatient (CLI) | payer MEDICARE ==
[~2020-11-13] MED LIST changes: -OXYC-302 PO; +OXYC1TAB14 PO
== END | disposition home or self-care (01) ==
LOC: ROC 07:35
PROVIDERS: ATTEND Radiology Radiation Oncology
DX: Z08 Encounter for follow-up examination after completed treatment for malignant neoplasm (principal); C45.7 Mesothelioma of other sites
CPT/HCPCS: 99213; G0463

== ENCOUNTER 2021-01-14 14:50 | Outpatient (CLI) | payer MEDICARE | END 2021-01-14 23:59 | disposition home or self-care (01) | LOC: RAD 14:50 | PROVIDERS: ATTEND Internal Medicine Hematology & Oncology | DX: C45.9 Mesothelioma, unspecified (principal); I82.492 Acute embolism and thrombosis of other specified deep vein of left lower extremity ==

== ENCOUNTER 2021-01-18 14:42 | Outpatient (CLI) | payer MEDICARE ==
[2021-01-18] MEDS ORDERED: OMNIPAQUE 350 MG/ML, 100ML BOTTLE ONE (15:00)
== END 2021-01-18 23:59 | disposition home or self-care (01) ==
LOC: CFH 14:42
PROVIDERS: ATTEND Radiology Radiation Oncology
DX: C45.7 Mesothelioma of other sites (principal); R10.2 Pelvic and perineal pain; K40.90 Unilateral inguinal hernia, without obstruction or gangrene, not specified as recurrent; N43.3 Hydrocele, unspecified; I70.0 Atherosclerosis of aorta
CPT/HCPCS: 72193; Q9967

== ENCOUNTER 2021-01-29 10:38 | Emergency (ER) | payer MEDICARE ==
[~2021-01-29] VITALS: Ht 170.2 cm; Wt 68.4 kg
--- NOTE | 2021-01-29 11:11 | NUR ---
IMMUNO THERAPY, DIAHRREA X10 LAST NIGHT, 2 WKS BEFORE Mg LOW. DVT ON ELAQUIS SINCE 01/14. AT BEDSIDE. PT ATTACHED TO MONITORS. VSS. NADN. PT UNDERGOING IMMINO THERAPY WITH DR. MORSE. PER PATIENT DR. SMITH ROUNDING THIS WEEK FOR ONCOLOGY.
[2021-01-29] MEDS ORDERED: SODIUM CHLORIDE 0.9% 1,000ML IVBOLUS ONE (12:00)
--- NOTE | 2021-01-29 12:08 | NUR ---
Task RN: Pt ambulatory to bathroom for UA with steady gait. States "I don't think I can give you the stool sample now."
--- NOTE | 2021-01-29 12:25 | NUR ---
pt resting in bed. at bedside. vss. henderson.
[2021-01-29 12:32] LABS: BASOPHILS % (AUTO) 1 % (0-1); EOSINOPHILS % (AUTO) 2 % (1-7); LYMPHOCYTES % (AUTO) 13 % (22-44); MEAN CORPUSCULAR HEMOGLOBIN 31.4 pg (27.5-34.5); MEAN CORPUSCULAR HGB CONC 33.6 g/dL (33.2-36.2); MEAN PLATELET VOLUME 7.9 fL (7.4-10.4); MONOCYTES % (AUTO) 9 % (2-9); NEUTROPHILS % (AUTO) 76 % (42-75); PLATELET COUNT 366 x10^3/uL (130-400); RED BLOOD COUNT 3.38 x10^6/uL (4.38-5.82); RED CELL DISTRIBUTION WIDTH 14.4 % (9.4-14.8)
[2021-01-29 12:35] LABS: MD NO
[2021-01-29 12:43] LABS: ALANINE AMINOTRANSFERASE 27 U/L (12-78); ALBUMIN 3.3 g/dL (3.4-5.0); ANION GAP 9 mmol/L (5-15); CALCIUM 9.5 mg/dL (8.5-10.1); CHLORIDE 100 mmol/L (98-107); CREATININE 0.62 mg/dL (0.7-1.3)
[2021-01-29 12:46] LABS: MICROSCOPIC INDICATED
[2021-01-29 12:46] LABS: ALKALINE PHOSPHATASE 107 U/L (45-117); BILIRUBIN,TOTAL 0.4 mg/dL (0.2-1.0); TOTAL PROTEIN 7.6 g/dL (6.4-8.2)
--- NOTE | 2021-01-29 13:02 | NUR ---
Pt to imaging at this time. Awake and alert.
--- NOTE | 2021-01-29 13:19 | NUR ---
vszak. beatriz. pt up to bathroom with steady gait. at bedside.
[2021-01-29] MEDS ORDERED: OMNIPAQUE 350 MG/ML, 100ML BOTTLE ONE (13:20)
--- NOTE | 2021-01-29 14:16 | NUR ---
MD Brito at bedside to update pt on POC. Awaiting orders.
[2021-01-29 14:36] VITALS: BP 169/83
== END 2021-01-29 14:39 | disposition home or self-care (01) ==
LOC: ED 14:33
DX: C80.1 Malignant (primary) neoplasm, unspecified (principal); D63.8 Anemia in other chronic diseases classified elsewhere; K59.00 Constipation, unspecified; R19.7 Diarrhea, unspecified; R11.0 Nausea; I10 Essential (primary) hypertension; K21.9 Gastro-esophageal reflux disease without esophagitis; I25.10 Atherosclerotic heart disease of native coronary artery without angina pectoris; Z86.718 Personal history of other venous thrombosis and embolism; Z79.899 Other long term (current) drug therapy; Z87.891 Personal history of nicotine dependence
CPT/HCPCS: 36415; 74177; 80053; 81001; 83605; 85025; 87040; 96360; 99285; J7030; Q9967

== ENCOUNTER → 2021-01-30 | Outpatient (CLI) | payer MEDICARE | END | disposition home or self-care (01) | LOC: ROC 01-29 09:22 | PROVIDERS: ATTEND Radiology Radiation Oncology | DX: C79.31 Secondary malignant neoplasm of brain (principal); C45.7 Mesothelioma of other sites; I10 Essential (primary) hypertension; I25.10 Atherosclerotic heart disease of native coronary artery without angina pectoris; K21.9 Gastro-esophageal reflux disease without esophagitis; Z79.899 Other long term (current) drug therapy; Z87.891 Personal history of nicotine dependence; Z86.718 Personal history of other venous thrombosis and embolism | CPT/HCPCS: G2251 ==

== ENCOUNTER 2021-02-15 09:47 | Emergency (ER) | payer MEDICARE ==
[~2021-02-15] VITALS: Ht 170.2 cm; Wt 68.6 kg
[~2021-02-15 09:47] MED LIST changes: +DIPH1TAB6 PO; +ONDA8TAB18 PO
--- NOTE | 2021-02-15 10:01 | NUR ---
BREAK RN: CONTACT WITH PT, 70 YR OLD MALE HERE WITH C/O "I RECEIVED 2 BAGS OF BLOOD LAST WEEK FROM HERE. I HAVE CANCER. DR MORSE DID THE POOP TEST AND I HAVE BLOOD IN MY POOP" DR ROJO AT BEDSIDE TO MG PT.
--- NOTE | 2021-02-15 10:08 | NUR ---
REPORT TO CJ RIVERA
[2021-02-15] MEDS ORDERED: L.E.T SOLUTION TP ONE ×2 (10:16→12:00)
--- NOTE | 2021-02-15 10:22 | NUR ---
LET applied 1020 to access port. as
[2021-02-15] MEDS ORDERED: AMIT75TA PO (10:26)
[2021-02-15] MEDS ORDERED: ALPR0.5T7 PO (10:26)
[2021-02-15] MEDS ORDERED: SODIUM CHLORIDE FLUSH 10ML SYR IVF ONE (10:30)
[2021-02-15] MEDS ORDERED: morphine PO (10:33)
[2021-02-15] MEDS ORDERED: ONDA4TAB13 SL (10:33)
[2021-02-15] MEDS ORDERED: MAGN400T26 PO (10:33)
[2021-02-15] MEDS ORDERED: PROC25SU25 PR (10:33)
[2021-02-15] MEDS ORDERED: APIX5TAB PO (10:33)
[2021-02-15 11:05] VITALS: BP 160/79
--- NOTE | 2021-02-15 11:06 | NUR ---
PORT ACCESSED BLOOD SENT EKG IN PROCESS. NO NEEDS AT THIS TIME.
[2021-02-15 11:18] LABS: BASOPHILS % (AUTO) 1 % (0-1); EOSINOPHILS % (AUTO) 3 % (1-7); LYMPHOCYTES % (AUTO) 10 % (22-44); MEAN CORPUSCULAR HEMOGLOBIN 31.1 pg (27.5-34.5); MEAN CORPUSCULAR HGB CONC 33.8 g/dL (33.2-36.2); MEAN PLATELET VOLUME 8.1 fL (7.4-10.4); MONOCYTES % (AUTO) 8 % (2-9); NEUTROPHILS % (AUTO) 79 % (42-75); PLATELET COUNT 237 x10^3/uL (130-400); RED BLOOD COUNT 3.39 x10^6/uL (4.38-5.82); RED CELL DISTRIBUTION WIDTH 14.3 % (9.4-14.8)
[2021-02-15 11:29] LABS: ALANINE AMINOTRANSFERASE 17 U/L (12-78); ALBUMIN 2.6 g/dL (3.4-5.0); ANION GAP 7 mmol/L (5-15); CALCIUM 8.6 mg/dL (8.5-10.1); CHLORIDE 104 mmol/L (98-107); MD NO
[2021-02-15 11:31] LABS: ALKALINE PHOSPHATASE 92 U/L (45-117); BILIRUBIN,TOTAL 0.4 mg/dL (0.2-1.0); CREATININE 0.57 mg/dL (0.7-1.3); TOTAL PROTEIN 6.8 g/dL (6.4-8.2)
--- NOTE | 2021-02-15 11:45 | NUR ---
h/h stable, recheck as
--- NOTE | 2021-02-15 12:35 | NUR ---
Break RN- BOLA Sahm at bedside for eval.
== END 2021-02-15 12:58 | disposition home or self-care (01) ==
LOC: ED 10:49
DX: D64.81 Anemia due to antineoplastic chemotherapy (principal); C34.90 Malignant neoplasm of unspecified part of unspecified bronchus or lung; I51.7 Cardiomegaly
CPT/HCPCS: 36415; 80053; 85025; 86850; 86900; 93005; 99284

== ENCOUNTER 2021-03-06 12:39 | Emergency (ER) | payer MEDICARE ==
[~2021-03-06] VITALS: Ht 170.2 cm; Wt 63.3 kg
[~2021-03-06 12:39] MED LIST changes: +APIX5TAB PO; +MAGN400T26 PO; +ONDA4TAB13 SL; +PROC25SU25 PR; +morphine PO
[2021-03-06] MEDS ORDERED: PANTOPRAZOLE 40 MG IV IVPush ONE (13:30)
[2021-03-06] MEDS ORDERED: SODIUM CHLORIDE FLUSH 10ML SYR IVF ONE (13:30)
--- NOTE | 2021-03-06 13:30 | NUR ---
PT PRESENTS TO ED WITH C/O BLACK STOOL AND N/D X1 WEEK. PT DENIES TAKING PEPTO BISMOL BUT STATES THEY ARE TAKING ABX. PT DENIES VOMITTING. PT A&O, RESPS EVEN AND UNLABORED, VSWILFREDO Couch. BOLA SAPP AT BEDSIDE FOR EVAL AND RECTAL EXAM.
--- NOTE | 2021-03-06 13:43 | NUR ---
PT TO CT
[2021-03-06 13:54] LABS: BASOPHILS % (AUTO) 0 % (0-1); EOSINOPHILS % (AUTO) 2 % (1-7); LYMPHOCYTES % (AUTO) 7 % (22-44); MEAN CORPUSCULAR HEMOGLOBIN 30.1 pg (27.5-34.5); MEAN CORPUSCULAR HGB CONC 33.8 g/dL (33.2-36.2); MEAN PLATELET VOLUME 7.8 fL (7.4-10.4); MONOCYTES % (AUTO) 7 % (2-9); NEUTROPHILS % (AUTO) 84 % (42-75); PLATELET COUNT 288 x10^3/uL (130-400); RED BLOOD COUNT 3.56 x10^6/uL (4.38-5.82); RED CELL DISTRIBUTION WIDTH 15.3 % (9.4-14.8)
[2021-03-06 13:57] LABS: MD NO
[2021-03-06] MEDS ORDERED: PANTOPRAZOLE 40 MG IV ONE (14:02)
[2021-03-06 14:04] LABS: ALANINE AMINOTRANSFERASE 16 U/L (12-78); ALBUMIN 2.5 g/dL (3.4-5.0); CALCIUM 8.9 mg/dL (8.5-10.1); CREATININE 0.42 mg/dL (0.7-1.3); INTERNATIONAL NORMALIZED RATIO 1.16 (0.93-1.1); PROTHROMBIN TIME 12.4 Seconds (9.6-11.5)
[2021-03-06 14:06] LABS: ALKALINE PHOSPHATASE 93 U/L (45-117); BILIRUBIN,TOTAL 0.3 mg/dL (0.2-1.0); TOTAL PROTEIN 6.6 g/dL (6.4-8.2)
[2021-03-06 14:11] LABS: ANION GAP 8 mmol/L (5-15); CHLORIDE 102 mmol/L (98-107)
--- NOTE | 2021-03-06 14:25 | NUR ---
PT BACK FROM CT
[2021-03-06] MEDS ORDERED: POTASSIUM CHLORIDE 40 MEQ in SODIUM CHLORIDE 0.9% 500 ML IV ONE (14:30)
[2021-03-06] MEDS ORDERED: MAGNESIUM SULFATE/D5W 100 ML IVPB ONE (14:30)
[2021-03-06] MEDS ORDERED: POTASSIUM CHLORIDE 20 MEQ TAB.ER.PRT PO ONE (14:30)
[2021-03-06] MEDS ORDERED: POTASSIUM CHLORIDE 20 MEQ TAB.ER.PRT ONE (14:38)
[2021-03-06] MEDS ORDERED: MAGNESIUM SULFATE/D5W 100 ML ONE (14:54)
--- NOTE | 2021-03-06 15:38 | NUR ---
Task RN: Pt medicated per MAR. Pt positioned for comfort. Pt and at bedside educated on POC. All questions answered. Pt and verbalized understanding of POC. Pt AO x 4. Skin warm and dry. Resp even and unlabored. Pt on cont BP, cardiac and SPO2 monitors. Pt denies any other needs at this time. Call light within reach.
[2021-03-06] MEDS ORDERED: MAGNESIUM SULFATE PMX 2GM/50ML 0 ML ONE (16:07)
--- NOTE | 2021-03-06 16:20 | NUR ---
PT RESTING IN BED, POTASSIUM INFUSING PER ORDER, VSS, NADN, ALL MONITORS ATTACHED, NSR. PT A&O, RESPS EVEN AND UNLABORED. CALL LIGHT IN REACH, AT BEDSIDE
--- NOTE | 2021-03-06 18:00 | NUR ---
PT RESTING IN BED, A&O, RESPS EVEN AND UNLABORED, VSS, ALL MONITORS ATTACHED, NSR, NADN. AWAITING LAB RESULTS AND DISPO.
[2021-03-06 18:13] LABS: ALBUMIN 2.3 g/dL (3.4-5.0); ANION GAP 9 mmol/L (5-15); CALCIUM 8.5 mg/dL (8.5-10.1); CHLORIDE 103 mmol/L (98-107); CREATININE 0.38 mg/dL (0.7-1.3)
--- NOTE | 2021-03-06 18:36 | NUR ---
K STILL INFUSING, DISCHARGE ORDERS RECEIVED. PT A&O, VSS, NADN.
--- NOTE | 2021-03-06 19:00 | NUR ---
REPORT GIVEN TO LOWELL RIVERA
[2021-03-06 19:31] VITALS: BP 156/75
--- NOTE | 2021-03-06 19:52 | NUR ---
Patient given discharge instructions and they have confirmed that they understand the instructions. Patient wheeled to discharge desk without any further questions.
== END 2021-03-06 19:54 | disposition home or self-care (01) ==
LOC: ED 13:11
DX: R53.1 Weakness (principal); E87.6 Hypokalemia; R00.0 Tachycardia, unspecified; M25.512 Pain in left shoulder; R19.7 Diarrhea, unspecified; M25.552 Pain in left hip; I10 Essential (primary) hypertension; E78.5 Hyperlipidemia, unspecified; K21.9 Gastro-esophageal reflux disease without esophagitis; Z87.11 Personal history of peptic ulcer disease
CPT/HCPCS: 36415; 73502; 80048; 80053; 82040; 85025; 85610; 85730; 86850; 86900; 93005; 96365; 96366; 96368; 96375; 99285; C9113; J3480; J7040

== ENCOUNTER → 2021-03-14 | Outpatient (CLI) | payer MEDICARE | END | disposition home or self-care (01) | LOC: ROC 10:07 | PROVIDERS: ATTEND Radiology Radiation Oncology | DX: Z08 Encounter for follow-up examination after completed treatment for malignant neoplasm (principal); Z85.841 Personal history of malignant neoplasm of brain; C45.7 Mesothelioma of other sites; R19.7 Diarrhea, unspecified; I10 Essential (primary) hypertension; K21.9 Gastro-esophageal reflux disease without esophagitis; E78.5 Hyperlipidemia, unspecified; E87.6 Hypokalemia; D63.8 Anemia in other chronic diseases classified elsewhere; I25.10 Atherosclerotic heart disease of native coronary artery without angina pectoris; E83.42 Hypomagnesemia; Z79.899 Other long term (current) drug therapy; Z87.891 Personal history of nicotine dependence | CPT/HCPCS: G0463 ==

== ENCOUNTER 2021-04-03 09:15 | Outpatient (CLI) | payer MEDICARE ==
[~2021-04-03 09:15] MED LIST changes: +OXYC1TAB12 PO; -OXYC1TAB14 PO
== END 2021-04-03 23:59 | disposition home or self-care (01) ==
LOC: ROC 09:15
PROVIDERS: ATTEND Radiology Radiation Oncology
DX: C79.31 Secondary malignant neoplasm of brain (principal); C45.7 Mesothelioma of other sites; E83.42 Hypomagnesemia; I10 Essential (primary) hypertension; I25.10 Atherosclerotic heart disease of native coronary artery without angina pectoris; K21.9 Gastro-esophageal reflux disease without esophagitis; E78.5 Hyperlipidemia, unspecified; Z79.899 Other long term (current) drug therapy; Z87.891 Personal history of nicotine dependence
CPT/HCPCS: G0463

== ENCOUNTER 2021-06-05 08:34 | Outpatient (CLI) | payer MEDICARE ==
[~2021-06-05 08:34] MED LIST changes: -OXYC1TAB12 PO; +OXYC1TAB14 PO
== END 2021-06-05 23:59 | disposition home or self-care (01) ==
LOC: ROC 08:34
PROVIDERS: ATTEND Radiology Radiation Oncology
DX: C79.31 Secondary malignant neoplasm of brain (principal); C45.7 Mesothelioma of other sites; I10 Essential (primary) hypertension; I25.10 Atherosclerotic heart disease of native coronary artery without angina pectoris; K21.9 Gastro-esophageal reflux disease without esophagitis; E78.5 Hyperlipidemia, unspecified; Z79.899 Other long term (current) drug therapy; Z87.891 Personal history of nicotine dependence
CPT/HCPCS: 99213; G0463